=== PATIENT | male | born 2000 | race Hispanic/Latino ===

== ENCOUNTER 2020-11-12 15:58 | Emergency (ER) | payer OTHER, SELFPAY ==
[2020-11-12 21:49] LABS: SARS-CoV-2 PCR by NAA Not Detected (NotDetected)
== END 2020-11-12 17:00 | disposition home or self-care (01) ==
LOC: ERS 15:58
DX: R51.9 Headache, unspecified (principal); J34.89 Other specified disorders of nose and nasal sinuses; Z20.822 Contact with and (suspected) exposure to COVID-19
CPT/HCPCS: 87635; 99283; U0003; U0005

== ENCOUNTER 2020-11-20 01:18 | Emergency (ER) | payer SELFPAY ==
[2020-11-20] MEDS ORDERED: Ondansetron ODT 4 MG TAB ONE (01:26)
[2020-11-20] MEDS ORDERED: Morphine 4 MG/ML VIAL ONE (01:42)
[2020-11-20] MEDS ORDERED: Ondansetron PF 4 MG/2 ML Vial ONE (01:42)
[2020-11-20 01:51] LABS: #Lymphocytes 1.3 thou/uL (1.20-3.40); #Monocytes 0.4 thou/uL (0.11-0.59); %Basophils 0.6 % (0.0-1.0); %Eosinophils 0.3 % (0.0-10.0); %Lymphocytes 27.5 % (21.0-51.0); %Monocytes 7.9 % (0.0-10.0); %Neutrophils 63.7 % (42.0-75.0); Hemoglobin 14.4 g/dL (14.0-18.0); Mean Corpuscular HGB CONC 35.7 g/dL (32.0-36.0); Mean Corpuscular Hemoglobin 31.5 pg (27.0-31.0); Mean Corpuscular Volume 88.1 fL (78.0-98.0); Mean Platelet Volume 9.3 fL (7.4-10.4); Platelet Count 147 thou/uL (130-400); RBC Distribution Width 11.6 % (11.5-14.5); Red Blood Cell (RBC) Count 4.58 mill/uL (4.70-6.10); White Blood Cell (WBC) Count 4.7 thou/uL (4.8-10.8)
[2020-11-20 02:15] LABS: Bilirubin Negative (Negative); Blood, Urine Negative (Negative); Clarity Clear (Clear); Glucose, Urine (Dipstick) Normal (Negative); Ketone, Urine 100 mg/dL (Negative); Leukocyte Negative Leu/uL (Negative); Nitrite Negative (Negative); Protein, Urine (Dipstick) 10 mg/dL (Neg-Trace); Specific Gravity, Urine 1.018 (1.002-1.036)
[2020-11-20 02:16] LABS: ALT (SGPT) 50 U/L (8-55); AST (SGOT) 47 U/L (5-34); Albumin 4.4 g/dL (3.5-5.0); Alkaline Phosphatase 51 U/L (40-110); Anion Gap 15 mmol/L (10-20); BUN (Urea Nitrogen) 10 mg/dL (8.9-20.6); Bilirubin, Total 1.8 mg/dL (0.2-1.2); Calc. Creatinine Clearance 0 mL/min (70-130); Calcium 8.8 mg/dL (7.8-10.44); Carbon Dioxide 23 mmol/L (22-29); Chloride 101 mmol/L (98-107); Globulin 3.1 g/dL (2.4-3.5); Glucose 88 mg/dL (70-105); Lipase 28 U/L (8-78); Potassium 3.4 mmol/L (3.5-5.1); Protein, Total 7.5 g/dL (6.0-8.3); Sodium 136 mmol/L (136-145)
[2020-11-20 06:56] LABS: SARS-CoV-2 PCR by NAA DETECTED (NotDetected)
--- NOTE | 2020-11-20 07:33 | CT ---
PRELIMINARY REPORT/[facility]/EMERGENCY AFTER HOURS PROCEDURE: EXAM: CT Abdomen and Pelvis with Intravenous Contrast CLINICAL HISTORY: 20-year-old male presents with several days of nausea now with abdominal pain. Jag y last week he noted immediate nausea after eating with multiple episodes of normal-appearing vomit. Patient states that while he is still somewhat nauseated he is here because he has developed p ain in his low belly. Patient notes that eating food exacerbates his pain. Patient denies past surgical history. TECHNIQUE: Axial computed tomography images of the abdomen and pelvis with intravenous contrast. CONTRAST: With; ISOVUE 370,100mL COMPARISON: None provided. FINDINGS: LUNG BASES: A solitary focus of groundglass opacity is seen within the medial aspect of the right low er lobe on image 9 of series 2. No effusion or pneumothorax is present. LIVER: The liver is of diffusely decreased attenuation when compared to the spleen. GALLBLADDER AND BILE DUCTS: Unremarkable. No calcified stone. No ductal dilation. PANCREAS: Unremarkable. SPLEEN: Unremarkable. ADRENAL GLANDS: Unremarkable. KIDNEYS, URETERS, AND BLADDER: The bladder is partially decompressed with mild circumferential bladde r wall thickening suggested. STOMACH AND BOWEL: The cecum is noted to reside within the central midline of the pelvis. APPENDIX: No current CT findings of appendicitis are identified. PERITONEUM: No free fluid. No free air. LYMPH NODES: A few borderline prominent central mesenteric lymph nodes are present. REPRODUCTIVE: Unremarkable as visualized. VASCULATURE: No aortic aneurysm. BONES: No fracture or suspicious osseous abnormality. ABDOMINAL WALL AND SOFT TISSUES: Unremarkable. IMPRESSION: 1. A solitary pleural-based focus of groundglass opacity within the medial aspect of the right lower lobe. The findings demonstrate mild to moderate confidence features of COVID-19 (in the appropriate clinical setting). Although other processes can cause a similar pattern, consider viral testing for c onfirmation of this possibility. 2. Findings most commonly associated with diffuse fatty infiltration of the liver. 3. No current CT findings of appendicitis observed. 4. Circumferential thickening of the bladder wall which may reflect a component of cystitis. 5. A few borderline prominent central mesenteric lymph nodes. ELECTRONICALLY SIGNED BY: Javier Lyons MD Nov 20, 2020 2:21:02 AM [facility] FINAL REPORT EXAM: CT ABDOMEN AND PELVIS HISTORY: Right lower quadrant pain. Evaluate for appendicitis. COMPARISON: None. Procedure: Multiple contiguous axial images were obtained and a CT of the abdomen and pelvis with IV contrast. C oronal reformats were performed. FINDINGS: Lower Chest: Peripheral groundglass opacities, incompletely evaluated. Vessels: Normal caliber aorta. Heart: Normal heart size. Abdomen: Portal vein:Patent. Gallbladder: No calcified gallstones. Normal caliber wall. Liver: Hypoattenuation due to hepatic steatosis. No enhancing masses. Pancreas: within normal limits. Spleen: within normal limits. Adrenals: within normal limits. Kidneys: Symmetric enhancement. No obstructive uropathy. Peritoneum: No ascites or free air, no fluid collection. Bowel: Limited evaluation due to the lack of oral contrast administration. No evidence of bowel obstr uction. Ileocecal junction is unremarkable. Normal caliber appendix. Scattered fecal material in a nondistended, nondilated colon.. Sigmoid colon diverticulosis, without evidence of diverticulitis. Mesentery and Retroperitoneum: No enlarged mesenteric or retroperitoneal lymph nodes. Abdominal Wall: within normal limits. Pelvis: Reproductive Organs: Reproductive organs are unremarkable. Pelvis: No mass, lymphadenopathy, free air. Trace amount of free fluid in the pelvis free fluid. Bladder: Prominent mucosa which may be due to inadequate distention. Correlate for cystitis. Bones: within normal limits. IMPRESSION: 1. This report is in agreement with initial report by [facility]. 2. Peripheral groundglass opacities in the lung bases. Correlate for COVID pneumonia. 3. Hepatic steatosis. 4. No CT evidence of appendicitis. 5. Questionable incomplete bladder distention versus cystitis. Correlate clinically. Transcribed Date/Time: 11/20/2020 7:39 AM
[2020-11-20] MEDS ORDERED: Iopamidol 370 76% 100 ML VIAL ONE (10:25)
== END 2020-11-20 02:53 | disposition home or self-care (01) ==
LOC: ERS 01:18
DX: U07.1 COVID-19 (principal)
CPT/HCPCS: 74177; 80053; 81003; 83690; 85025; 87635; 93005; 96374; 96375; J2270; J2405; Q0162; Q9967; U0003; U0005

== ENCOUNTER 2021-03-04 09:23 | Emergency (ER) | payer SELFPAY ==
[2021-03-04 10:08] LABS: #Basophils 0.1 thou/uL (0.0-0.2); #Eosinphils 0.5 thou/uL (0.0-0.7); #Lymphocytes 2.5 thou/uL (1.20-3.40); #Monocytes 0.6 thou/uL (0.11-0.59); #Neutrophils 5.7 thou/uL (1.40-6.50); %Basophils 1.1 % (0.0-1.0); %Lymphocytes 26.3 % (21.0-51.0); %Monocytes 6.4 % (0.0-10.0); %Neutrophils 61.2 % (42.0-75.0); Hemoglobin 15.5 g/dL (14.0-18.0); Mean Corpuscular HGB CONC 34.8 g/dL (32.0-36.0); Mean Corpuscular Volume 91.8 fL (78.0-98.0); Mean Platelet Volume 9.6 fL (7.4-10.4); Platelet Count 206 thou/uL (130-400); RBC Distribution Width 12.3 % (11.5-14.5); Red Blood Cell (RBC) Count 4.86 mill/uL (4.70-6.10); White Blood Cell (WBC) Count 9.3 thou/uL (4.8-10.8)
[2021-03-04 10:28] LABS: ALT (SGPT) 157 U/L (8-55); AST (SGOT) 85 U/L (5-34); Albumin 4.8 g/dL (3.5-5.0); Alkaline Phosphatase 80 U/L (40-110); Anion Gap 12 mmol/L (10-20); BUN (Urea Nitrogen) 12 mg/dL (8.9-20.6); Bilirubin, Total 2.7 mg/dL (0.2-1.2); Calc. Creatinine Clearance 0 mL/min (70-130); Calcium 10.2 mg/dL (7.8-10.44); Carbon Dioxide 26 mmol/L (22-29); Chloride 105 mmol/L (98-107); Glucose 95 mg/dL (70-105); Lipase 34 U/L (8-78); Potassium 3.9 mmol/L (3.5-5.1); Protein, Total 7.8 g/dL (6.0-8.3); Sodium 139 mmol/L (136-145)
[2021-03-04] MEDS ORDERED: Ondansetron ODT 4 MG TAB ONE (10:31)
[2021-03-04] MEDS ORDERED: Mag-Al 1200 mg/1200 mg/30 ML UDCUP ONE (10:31)
[2021-03-04] MEDS ORDERED: Lidocaine Viscous Sol 2% 15 ml UD Cup ONE (10:36)
[2021-03-04 10:43] LABS: Bilirubin Negative (Negative); Blood, Urine Negative (Negative); Clarity Clear (Clear); Glucose, Urine (Dipstick) Normal (Negative); Ketone, Urine Negative (Negative); Leukocyte Negative Leu/uL (Negative); Nitrite Negative (Negative); Protein, Urine (Dipstick) Negative (Neg-Trace); Specific Gravity, Urine 1.019 (1.002-1.036); Urobilinogen Normal mg/dL (Less than 2)
== END 2021-03-04 14:40 | disposition home or self-care (01) ==
LOC: ERS 09:23
DX: R10.13 Epigastric pain (principal); K76.0 Fatty (change of) liver, not elsewhere classified; R11.0 Nausea
CPT/HCPCS: 36415; 76705; 80053; 81003; 83690; 85025; 93005; Q0162